=== PATIENT | male | born 1950 | race Caucasian/White ===

== ENCOUNTER 2024-04-17 08:56 | Outpatient (OUT) | payer MEDICARE, SELFPAY ==
--- NOTE | 2024-04-17 | XR_ITS ---
The [address] [address] Patient Name: JAMEL BARLOW MRN: [id number] date: 1950 Sex: M Assigned Patient Location: Current Patient Location: Accession/Order Number: [id number] Exam Date: 04/17/2024 08:56 Report Date: 04/18/2024 08:37 At the request of: JASON BRENNAN Procedure: XR foot RT min 3V PROCEDURE: XR ankle RT min 3V, XR foot RT min 3V COMPARISON: None. HISTORY: RIGHT ANKLE PAIN FINDINGS: BONES:No acute fracture or dislocation. Moderate enthesopathic spurring plantar calcaneus. Moderate osteoarthropathy first metatarsal-phalangeal joint with joint space narrowing marginal osteophyte formation SOFT TISSUES:Negative. No visible soft tissue swelling. EFFUSION:None visible. OTHER: Negative. XR/XR foot RT min 3V IMPRESSION: Osteoarthritis Electronically authenticated by: ADWOA ALMONTE Date: 04/18/2024 08:37
--- NOTE | 2024-04-17 | XR_ITS ---
The [address] [address] Patient Name: JAMEL BARLOW MRN: [id number] date: 1950 Sex: M Assigned Patient Location: Current Patient Location: Accession/Order Number: [id number] Exam Date: 04/17/2024 08:56 Report Date: 04/18/2024 08:37 At the request of: JASON BRENNAN Procedure: XR ankle RT min 3V PROCEDURE: XR ankle RT min 3V, XR foot RT min 3V COMPARISON: None. HISTORY: RIGHT ANKLE PAIN FINDINGS: BONES:No acute fracture or dislocation. Moderate enthesopathic spurring plantar calcaneus. Moderate osteoarthropathy first metatarsal-phalangeal joint with joint space narrowing marginal osteophyte formation SOFT TISSUES:Negative. No visible soft tissue swelling. EFFUSION:None visible. OTHER: Negative. XR/XR ankle RT min 3V IMPRESSION: Osteoarthritis Electronically authenticated by: ADWOA ALMONTE Date: 04/18/2024 08:37
== END 2024-04-17 08:57 | disposition home or self-care (01) ==
LOC: EC 08:56
PROVIDERS: Visit Provider Podiatrist Foot & Ankle Surgery
DX: M25.571 Pain in right ankle and joints of right foot (principal); M19.071 Primary osteoarthritis, right ankle and foot
CPT/HCPCS: 73610; 73630

== ENCOUNTER 2024-04-26 09:55 | Outpatient (RCR) | payer MEDICARE, SELFPAY | END 2024-06-13 15:07 | disposition home or self-care (01) | LOC: PT 09:55 | PROVIDERS: Visit Provider Podiatrist Foot & Ankle Surgery | DX: M72.2 Plantar fascial fibromatosis (principal) | CPT/HCPCS: 97033; 97035; 97110; 97140; 97161 ==

== ENCOUNTER 2025-06-21 07:16 | Outpatient (OUT) | payer MEDICARE, SELFPAY ==
--- OUTSIDE RECORDS SUMMARY | 2025-06-21 07:24 | XMS_ITS | Patient Health Record ---
Author Organization The [facility] in [place] Address [address] [place] [address] Care Team Providers Care Grape Pruner Name Role Phone Chidi Harris MD Primary Care Provider Unavailabl e Allergies No Known Allergies Reason For Referral No Information Medications Medication SIG (Take, Route, Frequency, Duration) Notes Start Date End Date Status Meloxicam 15 MG 1 tablet Orally Once a day; Dura tion: 30 days 04/17/2024ctivedexAMETHasone Sodium Phosphate 4 MG/ML 1.5ml-2.5ml topically up to 3 times weekly with physical therapy; Duration: 30 days to be used topically with physical therapy iontopheresis 04/17/2024ctive Social History Tobacco Use: Social History Observation Description Date Details (start date - stop date) Former Smoker NA - NA Tobacco Control (Standard) Question Answer Notes Tobacco use: Former smoker Problems Problem Type SNOMED Code ICD Code Onset Dates Problem Status W/U Status Risk Notes Problem 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) (111172529133969) Contracture, right ankle (M24.571) ActiveconfirmedProblemArthralgia of the ankle and/or foot (958497330)Pain in right ankle and joints of right foot (M25.571)Activeconfirmed Plan Of Treatment Pending Test Test Name Order Date XR Ankle RT (3 views) * (161) 04/17/2024 XR ankle RT min 3V 04/18/2024 XR foot RT min 3V 04/18/2024 Insurance Providers Payer Name Payer Address Payer Phone Subscriber Number Group Number Insured Name Patient Relationship to Insured Coverage Start Date Coverage End Date [place]IC[place] [address] [place] [address] [id number] Industry Juan - [facility] is the [facility] [address] [place] [id number], TerrySelf - patient is the insured Medical (General) History Surgical History Surgery Date(Month/Year) hernia appendix
--- OUTSIDE RECORDS SUMMARY | 2025-06-21 07:24 | XMS_ITS | Clinical Summary ---
Author Organization [facility] [facility] Address [id number] [address] [place] [address] Care Team Providers Care Hotel Associate Name Role Phone Mary Alvares MD Primary Care Provider [phone] Allergies No known active allergies Medications MedicationSigDispense QuantityRefillsLast FilledStart DateEnd DateStatus metroNIDAZOLE (FLAGYL) 500 mg tablet Take 500 mg by mouth 3 (three) times a day.03/10/2020Active docusate sodium (COLACE) 250 mg capsule Take 250 mg by mouth daily.Active ciprofloxacin HCl (CIPRO) 500 mg tablet Take 1 tablet (500 mg total) by mouth 2 (two) times a day. 20 tablet 05/16/2020Active Active Problems No known active problems Family History Medical HistoryRelationNameCommentsHeart diseaseFatherRelationNameStatusComments FatherDeceasedMotherDeceased Social History Tobacco UseTypesPacks/DayYears UsedDateSmoking Tobacco: [id number] - 1992Smokeless Tobacco: NeverAlcohol UseStandard Drinks/WeekCommentsYes0 (1 standard drink = 0.6 oz pure alcohol)SOCIALLYChildcareAnswerDate Recorded KuccunecqBgwhbys25/12/2019EmploymentAnswerDate RecordedEmploymentUnknown 01/17/2019Purpose - LifeAnswerDate RecordedPurpose and direction in lifeUnknown 1Sex and Gender InformationValueDate RecordedSex Assigned at BirthNot on fileLegal UfiSlhn2110/14/2015 5:54 PM ESTGender IdentityNot on fileSexual OrientationNot on file Last Filed Vital Signs Vital SignReadingTime TakenCommentsBlood Urthjthd009/801 10:29 AM EDT Pulse--Jxwuwxpqgeb22.6 ??C (97.8 ??F)05/16/2020 10:29 AM EDTRespiratory Rate-- Oxygen Saturation--Inhaled Oxygen Concentration--Qaxxcr54.9 kg (174 lb) 05/16/2020 10:29 AM QZRUicwdt239.6 cm (5' 6 )05/16/2020 10:29 AM EDTBody Mass Index28.0805/16/2020 10:29 AM EDT Plan of Treatment Health MaintenanceDue DateLast DoneCommentsDepression Jfqlstbcx60/26/1964Tobacco Avsczdehf08/26/1964Adult BMI Mzgpywoia31/26/1970DTaP,Tdap and Td Vaccines (1 - Tdap)1971Zoster (Shingles) Vaccine (1 of 2)2002Abdominal Aortic Aneurysm (AAA) Btvjts7506/02/2017Fall Risk Sgajbviim81/26/2017Influenza Vaccine 04/08/2025RSV ( or age 60+ yrs) (1 - 1-dose 75+ series)2027 Medical Devices Not on file Insurance Care Teams Team MemberRelationshipSpecialtyStart DateEnd Date Mary Alvares MD PCP - GeneralFamily Medicine03/11/20
[2025-06-21 08:00] LABS: Hematocrit 44.2 % (42.0-54.0); Hemoglobin 14.6 g/dL (14.0-18.0); Immature Granulocytes Abs Auto 0.01 10^3/uL (0.00-0.03); Immature Granulocytes Pct Auto 0.1 % (0.0-0.5); Lymphocytes Absolute Auto 2.5 10^3/uL (1.2-3.8); Mean Corpuscular HGB Conc 33.0 g/dL (29.9-35.2); Mean Corpuscular Hemoglobin 29.6 pg (25.9-34.0); Mean Corpuscular Volume 89.7 fL (80.0-94.0); Platelet Count 246 10^3/uL (150-450); Red Blood Count 4.93 10^6/uL (4.70-6.10); White Blood Count 7.7 10^3/uL (4.0-11.0)
[2025-06-21 08:19] LABS: Alanine Aminotransferase 32 U/L (16-63); Albumin Globulin Ratio 1.0; Albumin Level 3.9 g/dL (3.4-5.0); Alkaline Phosphatase 108 U/L (46-116); Anion Gap 13.4; Aspartate Amino Transferase 23 U/L (15-37); Blood Urea Nitrogen 14.0 mg/dL (7.0-18.0); Calcium 9.1 mg/dL (8.5-10.1); Carbon Dioxide 27.9 mmol/L (21.0-32.0); Chloride 102 mmol/L (98-107); Cholesterol 289 mg/dL (<=200); Estimated GFR (African America >60 (>=60 mL/min/1.73m^2); Estimated GFR (Non-African Ame 55 (>=60 mL/min/1.73m^2); Globulin 3.8 g/dL; Glucose 107 mg/dL (74-106); HDL Cholesterol 48 mg/dL (40-60); Potassium 4.3 mmol/L (3.5-5.1); Sodium 139 mmol/L (136-145); Total Protein 7.7 g/dL (6.4-8.2); Triglycerides 102 mg/dL (<=150); VLDL CHOLESTEROL 20.4 mg/dL
== END 2025-06-21 07:17 | disposition home or self-care (01) ==
LOC: LAB 07:21
PROVIDERS: PCP Nurse Practitioner; Visit Provider Nurse Practitioner
DX: K21.9 Gastro-esophageal reflux disease without esophagitis (principal); Z78.9 Other specified health status; E78.00 Pure hypercholesterolemia, unspecified; Z68.30 Body mass index [BMI] 30.0-30.9, adult; Z12.5 Encounter for screening for malignant neoplasm of prostate
CPT/HCPCS: 36415; 80053; 80061; 84153; 84154; 84443; 85025; G0103